=== PATIENT | female | born 1990 | race Caucasian/White ===

== ENCOUNTER 2024-12-07 14:59 | Outpatient (CLI) | payer BC, SELFPAY ==
[2024-12-10 04:34] LABS: HPV Source Cervix; HPV, High Risk by TMA Not Detected
== END 2024-12-07 15:00 | disposition home or self-care (01) ==
PROVIDERS: PCP Family Medicine; Visit Provider Obstetrics & Gynecology
DX: Z12.4 Encounter for screening for malignant neoplasm of cervix (principal); Z11.51 Encounter for screening for human papillomavirus (HPV)
CPT/HCPCS: 87624; 87625; 88141; 88142

== ENCOUNTER 2024-12-15 08:25 | Outpatient (CLI) | payer BC, SELFPAY ==
--- NOTE | 2024-12-15 09:53 | P.ANES_ITS ---
Anesthesia Charges Start Date/Time Anesthesia Start Date: 12/15/24 Anesthesia Start Time: 09:24 Stop Date/Time Anesthesia Stop Date: 12/15/24 Anesthesia Stop Time: 09:51 Coding CPT Codes CPT Codes: ANES LWR INTST NDSC NOS - [id number] ([id number]) P3 - PATIENT W/SEVERE SYS DISEASE, QK - ELECTRONICS WARFARE TECHNICIAN 2-4 CNCRNT ANES PROC, QX - NEUROSURGICAL NURSE PRACTITIONER SVC W/ MD MED DIRECTION
--- NOTE | 2024-12-15 09:53 | W.ANESCHARGE ---
Anesthesia Charges Start Date/Time Anesthesia Start Date: 12/15/24 Anesthesia Start Time: 09:24 Stop Date/Time Anesthesia Stop Date: 12/15/24 Anesthesia Stop Time: 09:51 Coding CPT Codes CPT Codes: ANES LWR INTST NDSC NOS - [id number] ([id number]) P3 - PATIENT W/SEVERE SYS DISEASE, QK - TOWER EQUIPMENT INSTALLER 2-4 CNCRNT ANES PROC, QX - POLLS OR SURVEYS INTERVIEWER SVC W/ MD MED DIRECTION
--- NOTE | 2024-12-15 10:02 | P.ANES_ITS ---
Anesthesia Charges Start Date/Time Anesthesia Start Date: 12/15/24 Anesthesia Start Time: 09:24 Stop Date/Time Anesthesia Stop Date: 12/15/24 Anesthesia Stop Time: 09:51 Coding CPT Codes CPT Codes: ANES LWR INTST NDSC NOS - [id number] ([id number]) QK - WOOL HAT SANDING MACHINE OPERATOR 2-4 CNCRNT ANES PROC, QX - RN WOMEN SERVICES SVC W/ MED DIRECTION, P3 - PATIENT W/SEVERE SYS DISEASE
--- NOTE | 2024-12-15 10:02 | W.ANESCHARGE ---
Anesthesia Charges Start Date/Time Anesthesia Start Date: 12/15/24 Anesthesia Start Time: 09:24 Stop Date/Time Anesthesia Stop Date: 12/15/24 Anesthesia Stop Time: 09:51 Coding CPT Codes CPT Codes: ANES LWR INTST NDSC NOS - [id number] ([id number]) QK - SUPPLY CHAIN SPECIALIST 2-4 CNCRNT ANES PROC, QX - FILM PROCESSOR SVC W/ MED DIRECTION, P3 - PATIENT W/SEVERE SYS DISEASE
== END 2024-12-15 08:26 | disposition home or self-care (01) ==
LOC: OP CLINIC 08:25
PROVIDERS: PCP Family Medicine; Visit Provider Surgery
DX: K92.1 Melena (principal); D12.3 Benign neoplasm of transverse colon; K64.8 Other hemorrhoids
CPT/HCPCS: 00811; 45385; 88305; J2704

== ENCOUNTER 2024-12-22 11:33 | Outpatient (CLI) | payer BC, SELFPAY | END 2024-12-22 11:34 | disposition home or self-care (01) | PROVIDERS: PCP Family Medicine; Visit Provider Family Medicine | DX: Z13.220 Encounter for screening for lipoid disorders (principal); Z13.1 Encounter for screening for diabetes mellitus; Z13.29 Encounter for screening for other suspected endocrine disorder | CPT/HCPCS: 80061; 82947; 84443 ==